=== PATIENT | female | born 1980 | race Caucasian/White ===

== ENCOUNTER 2016-10-30 11:12 | Observation (INO) | payer OTHER ==
[~2016-10-30 11:12] MED LIST: FLEXERIL 10MG PO; NORCO 5/325 TAB1 TAB PO; PRENATAL1 TAB; [UNRECOGNIZED DRUG - CODE]
== END 2016-10-30 14:51 ==
LOC: LDR 11:12
PROVIDERS: ADMIT Advanced Practice Midwife
DX: O47.1 False labor at or after 37 completed weeks of gestation (principal); Z3A.38 38 weeks gestation of pregnancy

== ENCOUNTER 2016-11-05 13:14 | Inpatient (IN) | payer OTHER ==
[2016-11-05] MEDS ORDERED: PRENATAL 19 TA1 EAC1 PO (13:59)
[2016-11-05 15:02] LABS: BASO % 0.1 % (0-2); EOS % 0.4 % (0-7); HGB-HEMOGLOBIN 13.1 gm/dl (12.0-15.5); IMMATURE GRANULOCYTES ABSOLUTE 0.01 tho/cmm (0-0.03); IMMATURE GRANULOCYTES PERCENT 0.1 % (0-0.3); LYMPH % 21.7 % (20-45); LYMPH ABSOLUTE COUNT 1.7 tho/cmm (0.8-4.5); MCH (MEAN CORPUSCULAR HGB) 32.3 pg (28.0-32.0); MCHC MEAN CORPUSCULAR HGB CONC 35.4 % (32.0-36.0); MCV (MEAN CELL VOLUME) 91.4 fl (82.0-96.0); MONO % 6.6 % (0-12); MONOCYTE ABSOLUTE COUNT 0.5 tho/cmm (0.0-1.2); NEUTROPHIL ABSOLUTE COUNT 5.5 tho/cmm (1.6-8.0); NEUTROPHIL-AUTOMATED 5.5 tho/cmm (1.6-8.0); NEUTROPHILS % 71.1 % (40-80); PLATELET COUNT 188 tho/cmm (150-450); RED BLOOD COUNT 4.05 mil/cmm (4.00-5.20); RED CELL DISTRIBUTION WIDTH 13.8 % (12.4-16.4); WHITE BLOOD COUNT 7.7 tho/cmm (4.0-10.0)
[2016-11-06 08:03] LABS: BASO % 0.1 % (0-2); EOS % 0.4 % (0-7); HCT-HEMATOCRIT 35.5 % (34.0-49.0); HGB-HEMOGLOBIN 12.5 gm/dl (12.0-15.5); IMMATURE GRANULOCYTES ABSOLUTE 0.01 tho/cmm (0-0.03); IMMATURE GRANULOCYTES PERCENT 0.1 % (0-0.3); LYMPH % 17.3 % (20-45); LYMPH ABSOLUTE COUNT 1.3 tho/cmm (0.8-4.5); MCH (MEAN CORPUSCULAR HGB) 32.1 pg (28.0-32.0); MCHC MEAN CORPUSCULAR HGB CONC 35.2 % (32.0-36.0); MEAN PLATELET VOLUME 9.8 cmc (9.4-12.4); MONO % 8.4 % (0-12); MONOCYTE ABSOLUTE COUNT 0.6 tho/cmm (0.0-1.2); NEUTROPHIL ABSOLUTE COUNT 5.4 tho/cmm (1.6-8.0); NEUTROPHIL-AUTOMATED 5.4 tho/cmm (1.6-8.0); NEUTROPHILS % 73.7 % (40-80); PLATELET COUNT 143 tho/cmm (150-450); RED CELL DISTRIBUTION WIDTH 13.8 % (12.4-16.4); WHITE BLOOD COUNT 7.4 tho/cmm (4.0-10.0)
[2016-11-07] MEDS ORDERED: MOTRIN IB200 M1 PO (02:56)
== END 2016-11-07 13:03 | DRG 775 ==
LOC: LDR 13:14 → OBGE 22:52
PROVIDERS: ADMIT Advanced Practice Midwife
PROC: 10E0XZZ Delivery of Products of Conception, External Approach (ICD-10-PCS; principal; 2016-11-05)
PROC: 10907ZC Drainage of Amniotic Fluid, Therapeutic from Products of Conception, Via Natural or Artificial Opening (ICD-10-PCS; 2016-11-05)
PROC: 3E033VJ Introduction of Other Hormone into Peripheral Vein, Percutaneous Approach (ICD-10-PCS; 2016-11-05)
PROC: 10H07YZ Insertion of Other Device into Products of Conception, Via Natural or Artificial Opening (ICD-10-PCS; 2016-11-05)
PROC: 4A1H7CZ Monitoring of Products of Conception, Cardiac Rate, Via Natural or Artificial Opening (ICD-10-PCS; 2016-11-05)
DX: O99.824 Streptococcus B carrier state complicating childbirth (principal); Z37.0 Single live birth; Z3A.39 39 weeks gestation of pregnancy
CPT/HCPCS: J2540; J2590